=== PATIENT | male | born 1975 | race Caucasian/White ===

== ENCOUNTER 2019-03-27 13:10 | Observation (INO) ==
[2019-03-27] MEDS ORDERED: Nitroglycerin 0.4 MG TAB.SUBL SL PRN (13:30)
--- NOTE | 2019-03-27 13:38 | Emergency Department Note ---
Disposition Clinical Impression: Unstable angina Disposition: Admitted As Inpatient Condition: Good Referrals: Aidan Gutierrez DO [Primary Care Provider] - Forms: ED Satisfaction Letter Time of Disposition: 14:40 Chest Pain HPI - General Chief Complaint: ED Chest Pain Stated Complaint: chest pain Time Seen by Provider: 03/27/19 13:17 Source: patient Limitations: no limitations Vital Signs Reviewed: Yes Nursing Notes Reviewed: Yes - History of Present Illness HPI Narrative: 43-year-old male presents to emergency room for chest pain. Onset earlier this morning. Seems to be constant. Under the left breast. History of coronary disease with one stent. States he is compliant with his medications. He cannot remember the names on but thinks one is aspirin and another is a blood thinner. States he had a stent placed for an [place]. No other associated symptoms. His pain is about a 3 out of 10 at this time. History of cholesterol problems as well. Severity scale (1-10): 4 - Related Data Previous Rx's Medication Instructions Recorded Amlodipine Besylate 10 mg PO DAILY #30 tablet 02/17/18 Aspirin 81 mg PO DAILY #0 tab.chew 02/17/18 Atorvastatin [Lipitor] 40 mg PO HS #30 tablet 02/17/18 Metoprolol [Lopressor] 25 mg PO BID #60 tablet 02/17/18 Nitroglycerin 0.4 mg SL Q5MIN PRN #1 bottle 02/17/18 Ticagrelor [Brilinta] 90 mg PO BID #60 tablet 02/17/18 Allergies Allergy/AdvReac Type Severity Reaction Status Date / Time No Known Allergies Allergy Verified 09/15/15 13:59 Review of Systems: Gen.: No fevers or chills or new weakness Eyes: Denies double vision or any vision changes Ears: Denies any otalgia Pharynx: Denies sore throat CV: Positive for chest pain Respiratory: Denies any cough or sputum production. No shortness of breath. GI: Denies any nausea, vomiting, diarrhea, constipation. Denies abdominal pain Neuro: Denies any headache. No problems with ambulation. No numbness. Skin: Denies any rashes or abrasions Psych: Denies any depression or suicidal or homicidal ideation Musculoskeletal: Denies any arthralgias or myalgias Chest Pain PMH - Past Medical History Medical history: Reports: hyperlipidemia, hypertension Surgical history: Reports: no surgical history Psychiatric history: Reports: no psych history - Social History Smoking Status: Current every day smoker Alcohol use: Reports: occasionally Drug use: Reports: none Physical Exam HEENT: Head atraumatic normocephalic. Pharynx clear with no exudates. Oral mucosa moist. Uvula midline. TMs clear bilaterally. Trachea midline. No lymphadenopathy. Heart: Regular rate and rhythm. Normal S1 and S2. No gallops, rubs, or murmurs. Lungs: Clear to auscultation bilaterally. No evidence of any rhonchi wheezing or rales. Abdomen: Soft nontender nondistended. Positive bowel sounds. No peritoneal signs. Extremities: No evidence of cyanosis clubbing or edema. Neuro: Cranial nerves II through XII grossly intact. No focal motor or sensory deficits. Speech is clear. Skin: Normal color. dry. Psych: normal mentation. - General Limitations: no limitations General appearance: alert, in no apparent distress Course Vital Signs Temperature 98.0 F 03/27/19 13:11 Pulse Rate 56 03/27/19 13:11 Respiratory Rate 18 03/27/19 13:11 Blood Pressure 123/72 03/27/19 13:11 O2 Sat by Pulse Oximetry 96 03/27/19 13:11 Temperature 98.0 F 03/27/19 13:11 Pulse Rate 62 03/27/19 14:08 Respiratory Rate 13 03/27/19 14:08 Blood Pressure 103/68 03/27/19 14:08 O2 Sat by Pulse Oximetry 97 03/27/19 14:08 Oxygen Delivery Oxygen Delivery Room Air Chest Pain - MDM Narrative Medical decision making narrative: Patient feeling better after nitroglycerin. Heart score of 5. Admit. No lab abnormalities. EKG is stable. No acute changes - Medical Records Medical records reviewed: Yes I reviewed the patient's medical records. - Lab Data Lab results reviewed: Yes I reviewed the patient's lab results. Result diagrams: 03/27/19 13:33 03/27/19 13:33 Lab Results 03/27/19 03/27/19 Range/Units 13:33 13:33 WBC 7.3 (4.3-11.1) K/mcL RBC 4.43 (4.19-5.50) M/mcL Hgb 13.8 (12.9-16.9) g/dL Hct 39.1 (37.5-50.1) % MCV 88.3 (83.0-100.0) fL MCH 31.2 (28.0-33.3) pg MCHC 35.3 (31.6-35.5) g/dL RDW 12.2 (11.5-14.5) % Plt Count 186 (140-400) K/mcL MPV 12.3 (9.4-12.4) fL Seg Neutrophils % 76.0 % Lymphocytes % 16.0 % Monocytes % 8.0 % Neutrophils # 5.6 (1.6-8.9) K/mcL Lymphocytes # 1.2 (0.6-4.6) K/mcL Monocytes # 0.6 (0.0-1.3) K/mcL Reactive Lymphocytes Present A (Not Present) Platelet Estimate Normal (Normal) Sodium 137 (136-145) mEq/L Potassium 3.6 (3.5-5.1) mEq/L Chloride 106 (98-107) mEq/L Carbon Dioxide 25 (23-29) mEq/L BUN 24 H (6-20) mg/dL Creatinine 1.29 (0.70-1.30) mg/dL Est GFR ( Amer) > 60 (> 60) Est GFR (Non-Af Amer) > 60 (> 60) BUN/Creatinine Ratio 19 (6-26) Glucose 179 H (70-105) mg/dL Calculated Osmolality 293 (280-300) Calcium 9.8 (8.6-10.3) mg/dL Troponin I < 0.03 (< 0.04) ng/mL - Radiology Data Radiology results reviewed: Yes I reviewed the patient's radiology results. - EKG Data EKG attestation: Yes I reviewed and interpreted this EKG. EKG results narrative: EKG shows a rate of 52. Normal sinus rhythm. Normal axis. All intervals are normal. Normal EKG. No ST segment abnormalities. Heart Score - Score History: Moderately Suspicious EKG: Normal Age: 45-65 Risk Factors: Equal/Greater than 3 risk factor or history of atherosclerotic disease Troponin: Less than normal limit HEART Score Total: 4
[2019-03-27 13:52] LABS: Hematocrit 39.1 % (37.5-50.1); Hemoglobin 13.8 g/dL (12.9-16.9); Mean Corpuscular HGB Conc 35.3 g/dL (31.6-35.5); Mean Corpuscular Hemoglobin 31.2 pg (28.0-33.3); Mean Corpuscular Volume 88.3 fL (83.0-100.0); Mean Platelet Volume 12.3 fL (9.4-12.4); Platelet Count 186 K/mcL (140-400); Red Blood Count 4.43 M/mcL (4.19-5.50); Red Cell Distribution Width 12.2 % (11.5-14.5); White Blood Count 7.3 K/mcL (4.3-11.1)
[2019-03-27 14:12] LABS: BUN/Creatinine Ratio 19 (6-26); Blood Urea Nitrogen 24 mg/dL (6-20); Calcium 9.8 mg/dL (8.6-10.3); Carbon Dioxide 25 mEq/L (23-29); Chloride 106 mEq/L (98-107); Glucose 179 mg/dL (70-105); Osmolality,Calculated 293 (280-300); Potassium 3.6 mEq/L (3.5-5.1); Sodium 137 mEq/L (136-145); eGFR For African Americans > 60 (> 60); eGFR For Non-African Americans > 60 (> 60)
[2019-03-27 14:13] LABS: Troponin I < 0.03 ng/mL (< 0.04)
[2019-03-27 14:21] LABS: Lymphocytes # 1.2 K/mcL (0.6-4.6); Monocytes # 0.6 K/mcL (0.0-1.3); Neutrophils # 5.6 K/mcL (1.6-8.9); Platelet Estimate Normal (Normal); Reactive Lymphocytes Present (Not Present)
[2019-03-27] MEDS ORDERED: Ondansetron ODT 4 MG TAB.RAPDIS SL PRN (17:42)
[2019-03-27] MEDS ORDERED: Naloxone 0.4 MG/ML INJ IVP PRN (17:42)
[2019-03-27] MEDS ORDERED: Acetaminophen 325 MG TABLET PO PRN (17:42)
--- NOTE | 2019-03-27 17:50 | Internal Med History&Physical ---
Date of Encounter: 03/27/19 Time of Encounter: 18:54 Internal Medicine - H&P: HPI Chief complaint: cp Admitted From: Emergency Dept Plans for Post Hospital Care: Home History of present illness: Mr. Encarnacion is a 43 year old male past medical history of hypertension hyperlipidemia tobacco use coronary artery disease with stent placement patient presented to [facility] ED after experiencing a sudden onset of midsternal nonrad iating chest pain which he describes as a fall states the pain was intermittent with no aggravating or relieving factors. No associated symptoms he rates the pain approximate 3 out of 10 was given a sublingual nitroglycerin in the emergency department which did improve his chest pain EKG with no ST-T wave abnormalities [place] is unremarkable troponins are normal chest x-ray with no acute process. He has been admitted for further work up evaluation of chest pain. Currently patient is chest pain-free Past Med Surg Social Fam HX - Past Medical History Medical history: hyperlipidemia, hypertension Psychiatric history: no psych history - Past Surgical History Surgical History: no surgical history - Social History Smoking Status: Current every day smoker Smokeless Tobacco Status: No Alcohol use: occasionally Drug use: none - Family History Brother Hx Family Cardiac Disorders: Yes ([place]) Hx Family Endocrine Disorder: Yes (DM) Father Living Status: Hx Family Cardiac Disorders: Yes ([place]) Mother Living Status: Hx Family Neurologic Disorders: Yes (CVA) Internal Medicine - H&P: Meds Aspirin 81 mg PO DAILY #0 tab.chew 02/17/18 [Rx] Atorvastatin [Lipitor] 40 mg PO HS #30 tablet 02/17/18 [Rx] Metoprolol [Lopressor] 25 mg PO BID #60 tablet 02/17/18 [Rx] Nitroglycerin 0.4 mg SL Q5MIN PRN #1 bottle 02/17/18 [Rx] Clopidogrel [Plavix] 1 tab PO DAILY 03/27/19 [History] Lisinopril [Zestril] 1 tab PO DAILY 03/27/19 [History] hydroCHLOROthiazide [Hydrochlorothiazide] 25 mg PO DAILY 03/27/19 [History] Allergy/AdvReac Type Severity Reaction Status Date / Time No Known Allergies Allergy Verified 09/15/15 13:59 All Systems PM: A 10-system review of systems was performed and is negative for pertinent findings except as documented above in the HPI. - Constitutional Vitals: Temp Pulse Resp BP Pulse Ox 98.3 F 53 16 124/72 99 03/27/19 17:18 03/27/19 17:18 03/27/19 17:18 03/27/19 17:18 03/27/19 17:18 Exam: Skin: Free of rash and discoloration. Eyes: Sclera is white. There is no discharge from eyes. ENMT: Oral/pharyngeal mucosa is normal in appearance. There is no discharge from nose or ears. Respiratory: Normal breath sounds with no crackles and wheezes bilaterally. CV: Heart is regular with no gallop or murmur. GI: Abdomen is flat and soft with no palpable mass or visceromegaly. : There is no tenderness in patient's flanks bilaterally. Neuro exam: He has good strength in upper and lower extremities. He has normal eye movements. Psychiatric: He has normal affect. His thought process is appropriate to the situation. Internal Med - H&P Results - Labs CBC & Chem 7: 03/27/19 13:33 03/27/19 13:33 Labs: Short CBC 03/27/19 Range/Units 13:33 WBC 7.3 (4.3-11.1) K/mcL Hgb 13.8 (12.9-16.9) g/dL Hct 39.1 (37.5-50.1) % Plt Count 186 (140-400) K/mcL Neutrophils # 5.6 (1.6-8.9) K/mcL BMP 03/27/19 13:33 Sodium 137 Potassium 3.6 Chloride 106 Carbon Dioxide 25 BUN 24 H Creatinine 1.29 Glucose 179 H Calcium 9.8 Cardiac Enzymes 03/27/19 Range/Units 13:33 Troponin I < 0.03 (< 0.04) ng/mL - Impressions ITS Impressions Chest X-Ray 03/27/19 13:27 IMPRESSION: 1. No active pulmonary disease. D/ / Ash Rice MD / Ash Rice MD Interpreting Provider: Ash Rice MD - Assessment and Plan (1) Chest pain Current Visit: Yes Status: Acute Assessment and plan: Presented with sudden onset of chest pain which was relieved with one nitroglycerin Initial troponin was negative trend troponins 3 Continuous cardiac monitoring Cardiac echo Cardiac stress test in a.m. if above negative nothing by mouth after midnight Continued aspirin and statin beta marina and Plavix Nitroglycerin via for chest pain Consult cardiology as needed Patient did have abnormal stress test in 2018 and underwent LHC with a LINO to mLAD Qualifiers: Chest pain type: unspecified Qualified Code(s): R07.9 - Chest pain, unspecified (2) DVT prophylaxis Current Visit: No Status: Acute Assessment and plan: lovenox (3) CAD (coronary artery disease) Current Visit: No Status: Chronic Assessment and plan: History of abnormal stress test underwent LHC with LINO to M LAD-2017 Continue with aspirin and statin renal marina Plavix Nitroglycerin as needed for chest pain Qualifiers: Coronary Disease-Associated Artery/Lesion type: [place] artery [place] vs. transplanted heart: [place] heart Associated angina: without angina Qualified Code(s): I25.10 - Atherosclerotic heart disease of [place] coronary artery without angina pectoris (4) Hyperlipidemia Current Visit: No Status: Chronic Assessment and plan: We will check lipid profile continue with statin Qualifiers: Hyperlipidemia type: unspecified Qualified Code(s): E78.5 - Hyperlipidemia, unspecified (5) Hypertension Current Visit: No Status: Chronic Assessment and plan: Continue with home medications Qualifiers: Hypertension type: essential hypertension Qualified Code(s): I10 - Essential (primary) hypertension - Time Spent With Patient Total time spent is greater than 50% in coordination of care (as documented) at patient's floor/unit and/or counseling patient:
[2019-03-28 01:29] LABS: Basophils % 0.5 %; Eosinophils # 0.2 K/mcL (0.0-0.6); Eosinophils % 2.7 %; Hematocrit 38.7 % (37.5-50.1); Hemoglobin 13.5 g/dL (12.9-16.9); Immature Granulocytes % 1.2 % (0-4); Lymphocytes # 1.5 K/mcL (0.6-4.6); Mean Corpuscular HGB Conc 34.9 g/dL (31.6-35.5); Mean Corpuscular Hemoglobin 31.5 pg (28.0-33.3); Mean Corpuscular Volume 90.2 fL (83.0-100.0); Mean Platelet Volume 12.1 fL (9.4-12.4); Monocytes # 0.5 K/mcL (0.0-1.3); Monocytes % 7.8 %; Neutrophils # 3.7 K/mcL (1.6-8.9); Platelet Count 161 K/mcL (140-400); Red Blood Count 4.29 M/mcL (4.19-5.50); Red Cell Distribution Width 12.3 % (11.5-14.5); Segmented Neutrophils % 61.8 %; White Blood Count 5.9 K/mcL (4.3-11.1)
[2019-03-28 01:49] LABS: BUN/Creatinine Ratio 19 (6-26); Blood Urea Nitrogen 24 mg/dL (6-20); Calcium 9.8 mg/dL (8.6-10.3); Carbon Dioxide 27 mEq/L (23-29); Chloride 103 mEq/L (98-107); Chol/HDL Ratio 6.9 (0-4.9); Cholesterol 172 mg/dL (< 200); Glucose 190 mg/dL (70-105); HDL Cholesterol 25 mg/dL (40-59); Osmolality,Calculated 293 (280-300); Potassium 3.7 mEq/L (3.5-5.1); Sodium 137 mEq/L (136-145); Triglycerides 603 mg/dL (< 150); eGFR For African Americans > 60 (> 60); eGFR For Non-African Americans > 60 (> 60)
[2019-03-28 02:17] LABS: Large Platelets Present (Not Present); Platelet Estimate Normal (Normal); Reactive Lymphocytes Present (Not Present)
[2019-03-28] MEDS ORDERED: Regadenoson 0.4 MG/5 ML SYRINGE IVP ONE (06:16)
[2019-03-28] MEDS ORDERED: *HR* Enoxaparin 40 MG/0.4 ML SYRINGE SQ SCH (07:00)
[2019-03-28] MEDS ORDERED: hydroCHLOROthiazide 25 MG TABLET PO SCH (09:00)
[2019-03-28] MEDS ORDERED: Aspirin 81 MG TAB.CHEW PO SCH (09:00)
[2019-03-28 10:27] VITALS: BP 157/92
--- NOTE | 2019-03-28 12:20 | Discharge Summary ---
- NOTES TO OUTPATIENT PROVIDER Notes to Outpatient Provider: Underwent cardiac stress test was negative for any ischemia or infarct Date of Encounter: 03/28/19 Time of Encounter: 12:06 - Discharge Diagnosis (1) Chest pain Priority: Primary Status: Acute Qualifiers: Chest pain type: unspecified Qualified Code(s): R07.9 - Chest pain, unspecified (2) DVT prophylaxis Priority: Secondary Status: Acute (3) CAD (coronary artery disease) Priority: Secondary Status: Chronic Qualifiers: Coronary Disease-Associated Artery/Lesion type: [place] artery [place] vs. transplanted heart: [place] heart Associated angina: without angina Qualified Code(s): I25.10 - Atherosclerotic heart disease of [place] coronary artery without angina pectoris (4) Hyperlipidemia Priority: Secondary Status: Chronic Qualifiers: Hyperlipidemia type: unspecified Qualified Code(s): E78.5 - Hyperlipidemia, unspecified (5) Hypertension Priority: Secondary Status: Chronic Qualifiers: Hypertension type: essential hypertension Qualified Code(s): I10 - Essential (primary) hypertension Hospital course: Mr. Encarnacion is a 43 year old male astragal history hypertension hyperlipidemia tobacco use coronary artery disease with stent placement presented to [facility] ED after experiencing sudden onset of midsternal nonradiating chest pain she describes as a throbbing pain was intermittent with no axillary relieving factors. No associated symptoms. Pain 3 out of 10 was given sublingual nitroglycerin murmurs or was simply says pain EKG with no ST-T wave abnormalities chest x-ray within normal limits troponins negative 3 patient did undergo cardiac stress test negative for any ischemia or infarct. Patient has been chest pain-free during admission. Lab work does show elevated triglycerides increased Lipitor to 80 mg advised patient follow-up with primary care provider to monitor lipid panel. - Time Spent with Patient Total time spent providing and/or coordinating discharge services: - Discharge Medications Prescriptions: New Atorvastatin [Lipitor] 80 mg PO HS #60 tablet Continued Nitroglycerin 0.4 mg SL Q5MIN PRN #1 bottle PRN Reason: Chest Pain Aspirin 81 mg PO DAILY #0 tab.chew Metoprolol [Lopressor] 25 mg PO BID #60 tablet Clopidogrel [Plavix] 1 tab PO DAILY hydroCHLOROthiazide [Hydrochlorothiazide] 25 mg PO DAILY Lisinopril [Zestril] 1 tab PO DAILY No Action Atorvastatin [Lipitor] 40 mg PO HS #30 tablet Home Medications: Aspirin 81 mg PO DAILY #0 tab.chew 02/17/18 [Rx] Atorvastatin [Lipitor] 40 mg PO HS #30 tablet 02/17/18 [Rx] Metoprolol [Lopressor] 25 mg PO BID #60 tablet 02/17/18 [Rx] Nitroglycerin 0.4 mg SL Q5MIN PRN #1 bottle 02/17/18 [Rx] Clopidogrel [Plavix] 1 tab PO DAILY 03/27/19 [History] Lisinopril [Zestril] 1 tab PO DAILY 03/27/19 [History] hydroCHLOROthiazide [Hydrochlorothiazide] 25 mg PO DAILY 03/27/19 [History] Atorvastatin [Lipitor] 80 mg PO HS #60 tablet 03/28/19 [Rx] Allergies/Adverse Reactions: Allergy/AdvReac Type Severity Reaction Status Date / Time No Known Allergies Allergy Verified 09/15/15 13:59 Date of admission: 03/27/19 15:39 Primary care physician: Aidan Gutierrez, Consults: 03/28/19 09:21 Consult to Occupational Therapy [CONS] Routine Comment: Evaluate, develop and implement POC Reason for Consult: WEAKNESS, POSSIBLE PLACEMENT, WILL NEED INSURANCE AUTH Does patient have active BEDREST order?: No Is patient medically & hemodynamically stable?: Yes Consult to Physical Therapy [CONS] Routine Comment: Evaluate, develop and implement POC Reason for Consult: WEAKNESS, POSSIBLE PLACEMENT, WILL NEED INSURANCE AUTH Does patient have active BEDREST order?: No Is patient medically & hemodynamically stable?: Yes Discharging clinician: Antonieta Gomez Anticipated date of discharge: 03/28/19 - Constitutional Vitals: Temp Pulse Resp BP Pulse Ox 98.2 F 62 16 157/92 99 03/28/19 10:23 03/28/19 10:23 03/28/19 10:23 03/28/19 10:23 03/28/19 10:23 Exam: Skin: Free of rash and discoloration. Eyes: Sclera is white. There is no discharge from eyes. ENMT: Oral/pharyngeal mucosa is normal in appearance. There is no discharge from nose or ears. Respiratory: Normal breath sounds with no crackles and wheezes bilaterally. CV: Heart is regular with no gallop or murmur. GI: Abdomen is flat and soft with no palpable mass or visceromegaly. : There is no tenderness in patient's flanks bilaterally. Neuro exam: He has good strength in upper and lower extremities. He has normal eye movements. Psychiatric: He has normal affect. His thought process is appropriate to the situation. - Patient Status Disposition: Home, Self-Care Condition: Good Functional capacity at discharge: independent ambulation Overall status at discharge: patient is back to baseline - Discharge Instructions Instructions: Chest Pain (DC) Follow Up With: Aidan Gutierrez DO [Primary Care Provider] - - Diet and Activity Activity: increase activity as tolerated Diet: low fat, low cholesterol
--- NOTE | 2019-03-31 00:02 | Electrocardiograph Report ---
[employer] [employer] Test Date: 2019-03-27 Pat Name: Iván Encarnacion Department: [id number] Room: [facility] Gender: M Admitting Officer: : 1975 Requested By: Antonieta Gomez Order Number: [id number] Reading MD: Brennan Lubin Measurements Intervals [place] Rate: 52 P: 36 CT: 150 QRS: 57 QRSD: 91 T: 32 QT: 406 QTc: 378 Interpretive Statements Sinus rhythm Baseline wander in lead(s) V6 Electronically Signed On 03-31-2019 0:00:44 EDT by Brennan Lubin
== END 2019-03-28 13:48 | disposition home or self-care (01) ==
LOC: 3BNU 13:10 → EMEROOARM 13:10 → 3BNU 16:56
PROVIDERS: ADMIT Internal Medicine; ATTEND Internal Medicine